=== PATIENT | female | born 1970 | race Caucasian/White ===

== ENCOUNTER → 2023-02-08 | Outpatient (CLI) | payer BC, OTHER | LOC: M RAD 17:34 | PROVIDERS: ATTEND Student in an Organized Health Care Education/Training Program | DX: M17.11 Unilateral primary osteoarthritis, right knee (principal); M19.071 Primary osteoarthritis, right ankle and foot; M79.604 Pain in right leg ==

== ENCOUNTER → 2023-02-08 | Outpatient (REF) | payer OTHER | LOC: M WUC 19:04 | PROVIDERS: ATTEND Student in an Organized Health Care Education/Training Program | DX: R30.0 Dysuria (principal) ==

== ENCOUNTER 2023-08-16 11:20 | Outpatient (RCR) | payer BC, OTHER | END 2023-08-26 | LOC: M OT 11:20 | PROVIDERS: ATTEND Internal Medicine | DX: I67.9 Cerebrovascular disease, unspecified (principal); G81.91 Hemiplegia, unspecified affecting right dominant side; I60.7 Nontraumatic subarachnoid hemorrhage from unspecified intracranial artery; R26.89 Other abnormalities of gait and mobility; R53.81 Other malaise ==

== ENCOUNTER 2023-09-24 14:00 | Outpatient (RCR) | payer BC, OTHER | END 2023-09-26 | LOC: M OT 14:00 | PROVIDERS: ATTEND Internal Medicine | DX: I69.351 Hemiplegia and hemiparesis following cerebral infarction affecting right dominant side (principal); I69.398 Other sequelae of cerebral infarction; R26.81 Unsteadiness on feet; R53.81 Other malaise ==

== ENCOUNTER 2023-10-04 14:03 | Outpatient (RCR) | payer OTHER, BC | END 2023-10-27 | LOC: M OT 14:03 | PROVIDERS: ATTEND Internal Medicine | DX: I69.351 Hemiplegia and hemiparesis following cerebral infarction affecting right dominant side (principal); I69.398 Other sequelae of cerebral infarction; R26.89 Other abnormalities of gait and mobility; R53.81 Other malaise ==

== ENCOUNTER → 2024-02-02 | Outpatient (REF) | payer OTHER, BC ==
[2024-02-02 17:53] LABS: APPEARANCE, URINE HAZY (CLEAR); BACTERIA, URINE AUTO 1+ (NEGATIVE); BILIRUBIN, URINE AUTO NEGATIVE (NEGATIVE); BLOOD, URINE BLOOD NEGATIVE (NEGATIVE); COLOR, URINE AMBER (YELLOW); GLUCOSE, URINE (UA) AUTO NEGATIVE (NEGATIVE); KETONE, URINE AUTO NEGATIVE (NEGATIVE); LEUKOCYTE ESTERASE, URINE AUTO 2+ (NEGATIVE); MUCUS, URINE SMALL (NEGATIVE); NITRITE, URINE AUTO POSITIVE (NEGATIVE); PROTEIN, URINE AUTO 1+ mg/dL (NEGATIVE); RBC, URINE AUTO 4 /HPF (0-3); SPECIFIC GRAVITY URINE AUTO 1.013 (1.002-1.035); SQUAMOUS EPITHELIAL CELL UR AU 6 /HPF (0-6); WBC, URINE AUTO 59 /HPF (0-3)
== END ==
LOC: M LAB REF 15:46
PROVIDERS: ATTEND Internal Medicine
DX: R30.0 Dysuria (principal); R39.9 Unspecified symptoms and signs involving the genitourinary system; R10.9 Unspecified abdominal pain

== ENCOUNTER → 2024-02-24 | Outpatient (CLI) | payer BC ==
[2024-02-24 13:48] LABS: THYROID STIMULATING HORMONE 1.198 uIU/ML (0.55-4.78); VITAMIN B12 LEVEL 957 PG/ML (211-911)
[2024-02-24 13:49] LABS: FOLATE > 24.00 NG/ML (>5.4)
== END ==
LOC: M LAB 12:50
PROVIDERS: ATTEND Psychiatry & Neurology Neurology
DX: E78.2 Mixed hyperlipidemia (principal)

== ENCOUNTER 2024-02-29 13:50 | Inpatient (IN) | payer BC ==
[2024-02-29] VITALS (7 sets, daily range): BP systolic 114–137; BP diastolic 63–85; TEMP 97.5–99.4; O2SAT 94–95
[~2024-02-29] VITALS: Ht 162.6 cm; Wt 76.0 kg
[2024-02-29] MEDS ORDERED: ATIV1TAB10 PO ×2 (14:04→21:35)
[2024-02-29] MEDS ORDERED: FOLI1TAB11 PO (14:04)
[2024-02-29] MEDS ORDERED: GABA-284 PO (14:04)
[2024-02-29] MEDS ORDERED: BACL10TA2 PO (14:04)
[2024-02-29] MEDS ORDERED: OSTE1TAB2 PO (14:04)
[2024-02-29] MEDS ORDERED: FLOM0.4C39 PO (14:04)
[2024-02-29] MEDS ORDERED: ECOT81TA5 PO (14:04)
[2024-02-29] MEDS ORDERED: OXYB10TA23 PO (14:04)
[2024-02-29] MEDS ORDERED: CVSTAB PO (14:04)
[2024-02-29] MEDS ORDERED: DOCU100C16 PO (14:04)
[2024-02-29] MEDS ORDERED: ACET650T15 PO (14:04)
[2024-02-29] MEDS ORDERED: SERT-141 PO (14:04)
[2024-02-29] MEDS ORDERED: OMEP-312 PO (14:04)
[2024-02-29] MEDS ORDERED: TRAZ-186 PO (14:04)
[2024-02-29] MEDS ORDERED: AMAN100T PO (14:04)
[2024-02-29] MEDS ORDERED: DOXA2TAB61 PO (14:04)
[2024-02-29] MEDS ORDERED: PROP10TA56 PO ×2 (14:04→21:35)
[2024-02-29 16:48] LABS: BASO % 0.2 % (0.0-1.0); EOS # 0.1 10^3/uL (0.0-0.5); EOS % 1.2 % (0.0-3.0); HEMATOCRIT 26.5 % (36.0-47.0); LYMPH # 2.1 10^3/uL (1.5-5.0); LYMPH % 23.8 % (24.0-44.0); MEAN CORPUSCULAR HEMOGLOBIN 25.4 pg (27.0-33.0); MEAN CORPUSCULAR HGB CONC 30.2 g/dl (32.0-36.5); MEAN CORPUSCULAR VOLUME 84.1 fl (80.0-96.0); MONO # 0.7 10^3/uL (0.0-0.8); MONO % 7.8 % (2.0-8.0); NEUTROPHILS # 5.9 10^3/uL (1.5-8.5); NEUTROPHILS % 66.5 % (36.0-66.0); PLATELET COUNT, AUTOMATED 632 10^3/uL (150-450); RED BLOOD COUNT 3.15 10^6/uL (4.00-5.40); WHITE BLOOD COUNT 8.9 10^3/uL (4.0-10.0)
[2024-02-29 17:10] LABS: BLOOD UREA NITROGEN 10 MG/DL (9-23); CARBON DIOXIDE LEVEL 27 MMOL/L (20-31); CHLORIDE LEVEL 104 MMOL/L (98-107); CREATININE FOR GFR 0.59 MG/DL (0.55-1.30); GLOMERULAR FILTRATION RATE > 60.0 (>51); GLUCOSE, FASTING 101 MG/DL (60-100); IRON (FE) 7 UG/DL (50-170); POTASSIUM SERUM 5.7 MMOL/L (3.5-5.1); SODIUM LEVEL 138 MMOL/L (136-145); TOTAL IRON BINDING CAPACITY 233 UG/DL (250-425)
[2024-02-29 17:11] LABS: FERRITIN 221.9 NG/ML (7.3-270.7)
[2024-02-29 17:12] LABS: VITAMIN B12 LEVEL 1422 PG/ML (211-911)
[2024-02-29 17:18] LABS: FOLATE > 24.00 NG/ML (>5.4)
[2024-02-29] MEDS ORDERED: MAALOX 30 ML SUSP *UDC PO PRN (19:10)
[2024-02-29 19:37] LABS: ALBUMIN 2.3 G/DL (3.2-5.2); ALKALINE PHOSPHATASE 239 U/L (46-116); ALT/SGPT 34 U/L (7.0-40); AST/SGOT 38 U/L (<34); BILIRUBIN,DIRECT 0.1 MG/DL (<0.4); BILIRUBIN,TOTAL 0.2 MG/DL (0.3-1.2); TOTAL PROTEIN 7.2 G/DL (5.7-8.2)
[2024-02-29] MEDS ORDERED: ISOVUE-370 76% 100ML VIAL As Ordered ONE (20:17)
[2024-02-29 20:53] LABS: PROCALCITONIN 0.12 ng/ml
[2024-02-29] MEDS ORDERED: FERROUS SULFATE 325MG TAB PO SCH (21:05)
[2024-02-29] MEDS ORDERED: GABA-1171 PO (21:35)
[2024-02-29] MEDS ORDERED: VITAD400CA PO (21:35)
[2024-02-29] MEDS ORDERED: TRAZ-252 PO (21:35)
[2024-02-29] MEDS ORDERED: DOXA1TAB41 PO (21:35)
[2024-02-29] MEDS ORDERED: OMEP-173 PO (21:35)
[2024-02-29] MEDS ORDERED: BACL1TAB9 PO (21:35)
[2024-02-29] MEDS ORDERED: ACET-897 PO (21:35)
[2024-02-29] MEDS ORDERED: DOCU100C17 PO (21:35)
[2024-02-29] MEDS ORDERED: NITR100C2 PO (21:35)
[2024-02-29] MEDS ORDERED: ASPI81TA26 PO (21:36)
[2024-02-29] MEDS ORDERED: HOME MED LIST COMPLETE! XX SCH (21:40)
[2024-02-29] MEDS: NS 1,000 ML IV SCH (21:52)
[2024-02-29 22:58] LABS: HEMATOCRIT 28.7 % (36.0-47.0); HEMOGLOBIN 9.1 g/dl (12.0-15.5)
[2024-02-29] MEDS: DOCUSATE SODIUM 100MG CAPSULE PO SCH (23:01)
[2024-02-29] MEDS: FERROUS SULFATE 325MG TAB PO SCH (23:01)
[2024-02-29] MEDS: PATIROMER SORBITEX CALCIUM 8.4 GM POWDER PACKET (VELTASSA) PO ONE (23:04)
[2024-02-29 23:05] LABS: ERYTHROCYTE SEDIMENTATION RATE > 130 mm/hr (0-30)
[2024-03-01] VITALS (21 sets, daily range): BP systolic 102–136; BP diastolic 58–83; TEMP 96.7–98.6; O2SAT 87–100
[2024-03-01] MEDS ORDERED: VANCOMYCIN HCL 1,500 MG in IV FLUID PLACE HOLDER 1 EA IV ONE (00:45)
[2024-03-01] MEDS ORDERED: FLUID PLACE HOLDER IV SCH (00:45)
[2024-03-01] MEDS ORDERED: VANCOMYCIN HCL IV SCH (00:45)
[2024-03-01] MEDS: VANCOMYCIN HCL 750 MG, VIAL MATE ADAPTER 1 EACH in D5W 250 ML IV ONE ×2 (01:14→02:08)
[2024-03-01] MEDS: CEFEPIME HCL 2 GM in D5W MINI-BAG PLUS 50 ML IV SCH (04:03)
[2024-03-01 06:09] LABS: HEMATOCRIT 27.9 % (36.0-47.0); HEMOGLOBIN 8.8 g/dl (12.0-15.5); MEAN CORPUSCULAR HEMOGLOBIN 25.7 pg (27.0-33.0); MEAN CORPUSCULAR HGB CONC 31.5 g/dl (32.0-36.5); MEAN CORPUSCULAR VOLUME 81.3 fl (80.0-96.0); PLATELET COUNT, AUTOMATED 585 10^3/uL (150-450); RED BLOOD COUNT 3.43 10^6/uL (4.00-5.40); WHITE BLOOD COUNT 8.7 10^3/uL (4.0-10.0)
[2024-03-01 06:49] LABS: ALBUMIN 2.1 G/DL (3.2-5.2); ALKALINE PHOSPHATASE 212 U/L (46-116); ALT/SGPT 27 U/L (7.0-40); AST/SGOT 17 U/L (<34); BILIRUBIN,TOTAL 0.6 MG/DL (0.3-1.2); BLOOD UREA NITROGEN 7 MG/DL (9-23); CALCIUM LEVEL 9.1 MG/DL (8.5-10.1); CARBON DIOXIDE LEVEL 26 MMOL/L (20-31); CHLORIDE LEVEL 105 MMOL/L (98-107); CREATININE FOR GFR 0.58 MG/DL (0.55-1.30); GLOMERULAR FILTRATION RATE > 60.0 (>51); GLUCOSE, FASTING 127 MG/DL (60-100); MAGNESIUM LEVEL 1.9 MG/DL (1.8-2.4); SODIUM LEVEL 138 MMOL/L (136-145); TOTAL PROTEIN 6.6 G/DL (5.7-8.2)
[2024-03-01 08:30] LABS: LDH LACTATE DEHYDROGENASE 175 U/L (120-246)
[2024-03-01] MEDS: DOCUSATE SODIUM 100MG CAPSULE PO SCH (09:00)
[2024-03-01] MEDS: VITAMIN D 1,000 INTERNATIONAL UNITS TABLET PO SCH (09:29)
[2024-03-01] MEDS: OMEPRAZOLE 20MG CAP PO SCH (09:29)
[2024-03-01] MEDS: TAMSULOSIN 0.4 MG CAP PO SCH (09:29)
[2024-03-01] MEDS: BACLOFEN 10 MG TAB PO SCH (09:29)
[2024-03-01] MEDS: GABAPENTIN 100 MG CAP PO SCH (09:29)
[2024-03-01] MEDS: FOLIC ACID 1MG TAB PO SCH (09:29)
[2024-03-01] MEDS: SERTRALINE HCL 50 MG TAB PO SCH (09:29)
[2024-03-01] MEDS: ASPIRIN 81MG ENTERIC TABLET PO SCH (09:29)
[2024-03-01] MEDS: VANCOMYCIN HCL 750 MG, VIAL MATE ADAPTER 1 EACH in D5W 250 ML IV SCH (10:27)
[2024-03-01] MEDS: PROPRANOLOL 10 MG TAB PO SCH (10:32)
[2024-03-01 11:58] LABS: HEMATOCRIT 28.7 % (36.0-47.0)
[2024-03-01 12:03] LABS: PH BODY FLUID 7.598 UNITS (NOT ESTABLISHED); SOURCE, BODY FLUID pH PLEURAL
[2024-03-01 12:18] LABS: APPEARANCE, BODY FLUID HAZY (CLEAR); PLEURAL FL COLOR PALE YELLOW (COLORLESS); SOURCE, BODY FLUID PLEURAL
[2024-03-01] MEDS: DOXAZOSIN MESYLATE 1 MG TAB PO SCH (12:23)
[2024-03-01] MEDS: AMANTADINE 100MG TABLET PO SCH (12:23)
[2024-03-01 12:26] LABS: SOURCE, BODY FLUID ALBUMIN PLEURAL
[2024-03-01 12:31] LABS: SOURCE, BODY FLUID GLUCOSE PLEURAL
[2024-03-01 12:32] LABS: LDH, BODY FLUID 177 U/L (NOT ESTABLISHED); SOURCE, BODY FLUID LDH PLEURAL
[2024-03-01] MEDS ORDERED: PILL CUTTER 1 EACH XX ONE (15:25)
[2024-03-01] MEDS: ONDANSETRON 4MG 2ML VIAL IV PRN (16:29)
[2024-03-01 18:30] LABS: HEMATOCRIT 27.6 % (36.0-47.0); HEMOGLOBIN 8.7 g/dl (12.0-15.5)
[2024-03-01] MEDS: LORazepam 0.5 MG TAB PO SCH (21:12)
[2024-03-01] MEDS: traZODone 50 MG TAB PO SCH (21:13)
[2024-03-02] VITALS (13 sets, daily range): BP systolic 105–129; BP diastolic 66–85; TEMP 97.3–98.7; O2SAT 93–96
[2024-03-02 00:18] LABS: HEMATOCRIT 28.2 % (36.0-47.0); HEMOGLOBIN 8.9 g/dl (12.0-15.5)
[2024-03-02 05:41] LABS: BASO % 0.4 % (0.0-1.0); EOS # 0.1 10^3/uL (0.0-0.5); EOS % 1.3 % (0.0-3.0); HEMATOCRIT 27.5 % (36.0-47.0); HEMOGLOBIN 8.6 g/dl (12.0-15.5); LYMPH # 1.7 10^3/uL (1.5-5.0); MEAN CORPUSCULAR HEMOGLOBIN 25.5 pg (27.0-33.0); MEAN CORPUSCULAR HGB CONC 31.3 g/dl (32.0-36.5); MEAN CORPUSCULAR VOLUME 81.6 fl (80.0-96.0); MONO # 0.7 10^3/uL (0.0-0.8); MONO % 8.2 % (2.0-8.0); NEUTROPHILS # 6.3 10^3/uL (1.5-8.5); NEUTROPHILS % 70.4 % (36.0-66.0); PLATELET COUNT, AUTOMATED 574 10^3/uL (150-450); RED BLOOD COUNT 3.37 10^6/uL (4.00-5.40)
[2024-03-02 05:47] LABS: ERYTHROCYTE SEDIMENTATION RATE > 130 mm/hr (0-30)
[2024-03-02 05:59] LABS: ALBUMIN 1.9 G/DL (3.2-5.2); ALKALINE PHOSPHATASE 194 U/L (46-116); ALT/SGPT 24 U/L (7.0-40); AST/SGOT 12 U/L (<34); BILIRUBIN,TOTAL 0.5 MG/DL (0.3-1.2); BLOOD UREA NITROGEN 6 MG/DL (9-23); CALCIUM LEVEL 8.6 MG/DL (8.5-10.1); CARBON DIOXIDE LEVEL 24 MMOL/L (20-31); CHLORIDE LEVEL 109 MMOL/L (98-107); CREATININE FOR GFR 0.62 MG/DL (0.55-1.30); GLOMERULAR FILTRATION RATE > 60.0 (>51); GLUCOSE, FASTING 94 MG/DL (60-100); MAGNESIUM LEVEL 1.8 MG/DL (1.8-2.4); POTASSIUM SERUM 4.2 MMOL/L (3.5-5.1); SODIUM LEVEL 143 MMOL/L (136-145); TOTAL PROTEIN 6.4 G/DL (5.7-8.2)
[2024-03-02] MEDS: VANCOMYCIN HCL 1,000 MG, VIAL MATE ADAPTER 1 EACH in D5W 250 ML IV SCH (10:07)
[2024-03-03] VITALS (10 sets, daily range): BP systolic 109–130; BP diastolic 63–80; TEMP 97.4–98.2; O2SAT 93–96
[2024-03-03 06:54] LABS: BASO % 0.3 % (0.0-1.0); EOS # 0.2 10^3/uL (0.0-0.5); EOS % 1.9 % (0.0-3.0); HEMOGLOBIN 8.6 g/dl (12.0-15.5); LYMPH # 1.6 10^3/uL (1.5-5.0); LYMPH % 18.4 % (24.0-44.0); MEAN CORPUSCULAR HEMOGLOBIN 25.1 pg (27.0-33.0); MEAN CORPUSCULAR HGB CONC 30.7 g/dl (32.0-36.5); MEAN CORPUSCULAR VOLUME 81.9 fl (80.0-96.0); MONO # 0.8 10^3/uL (0.0-0.8); MONO % 8.7 % (2.0-8.0); NEUTROPHILS % 69.7 % (36.0-66.0); PLATELET COUNT, AUTOMATED 545 10^3/uL (150-450); RED BLOOD COUNT 3.42 10^6/uL (4.00-5.40); WHITE BLOOD COUNT 8.6 10^3/uL (4.0-10.0)
[2024-03-03 07:19] LABS: ALBUMIN 1.8 G/DL (3.2-5.2); ALKALINE PHOSPHATASE 176 U/L (46-116); ALT/SGPT 22 U/L (7.0-40); AST/SGOT 9 U/L (<34); BILIRUBIN,TOTAL 0.5 MG/DL (0.3-1.2); BLOOD UREA NITROGEN 6 MG/DL (9-23); CALCIUM LEVEL 8.5 MG/DL (8.5-10.1); CARBON DIOXIDE LEVEL 24 MMOL/L (20-31); CHLORIDE LEVEL 112 MMOL/L (98-107); GLOMERULAR FILTRATION RATE > 60.0 (>51); GLUCOSE, FASTING 103 MG/DL (60-100); MAGNESIUM LEVEL 1.8 MG/DL (1.8-2.4); POTASSIUM SERUM 3.9 MMOL/L (3.5-5.1); SODIUM LEVEL 143 MMOL/L (136-145); TOTAL PROTEIN 6.1 G/DL (5.7-8.2)
[2024-03-03] MEDS: VANCOMYCIN HCL 750 MG, VIAL MATE ADAPTER 1 EACH in D5W 250 ML IV SCH (10:37)
[2024-03-03] MEDS: MOM 30ML SUSPENSION UDC PO PRN (10:38)
[2024-03-03] MEDS: ACETAMINOPHEN TAB 650MG DOSE (2X325MG) PO PRN (11:45)
[2024-03-04] VITALS (7 sets, daily range): BP systolic 116–150; BP diastolic 67–87; TEMP 96.8–98; O2SAT 95–97
[2024-03-04 07:01] LABS: BASO % 0.3 % (0.0-1.0); EOS # 0.2 10^3/uL (0.0-0.5); EOS % 1.8 % (0.0-3.0); HEMATOCRIT 29.6 % (36.0-47.0); HEMOGLOBIN 9.3 g/dl (12.0-15.5); LYMPH # 1.5 10^3/uL (1.5-5.0); LYMPH % 15.6 % (24.0-44.0); MEAN CORPUSCULAR HEMOGLOBIN 25.9 pg (27.0-33.0); MEAN CORPUSCULAR HGB CONC 31.4 g/dl (32.0-36.5); MEAN CORPUSCULAR VOLUME 82.5 fl (80.0-96.0); MONO # 0.7 10^3/uL (0.0-0.8); MONO % 6.6 % (2.0-8.0); NEUTROPHILS # 7.4 10^3/uL (1.5-8.5); NEUTROPHILS % 74.9 % (36.0-66.0); PLATELET COUNT, AUTOMATED 637 10^3/uL (150-450); RED BLOOD COUNT 3.59 10^6/uL (4.00-5.40); WHITE BLOOD COUNT 9.9 10^3/uL (4.0-10.0)
[2024-03-04 07:29] LABS: BLOOD UREA NITROGEN 6 MG/DL (9-23); CALCIUM LEVEL 8.7 MG/DL (8.5-10.1); CARBON DIOXIDE LEVEL 26 MMOL/L (20-31); CHLORIDE LEVEL 111 MMOL/L (98-107); CREATININE FOR GFR 0.47 MG/DL (0.55-1.30); GLOMERULAR FILTRATION RATE > 60.0 (>51); GLUCOSE, FASTING 103 MG/DL (60-100); MAGNESIUM LEVEL 2.1 MG/DL (1.8-2.4); POTASSIUM SERUM 4.5 MMOL/L (3.5-5.1); SODIUM LEVEL 144 MMOL/L (136-145)
[2024-03-04] MEDS: MIRALAX *UNIT DOSE* 17GM PACKET PO PRN (13:41)
[2024-03-04] MEDS: BISACODYL 10MG SUPP PR PRN (13:41)
[2024-03-04] MEDS: SENOKOT S TAB PO SCH (21:36)
[2024-03-05 04:00] VITALS: BP 142/87; TEMP 97.7; O2SAT 95
[2024-03-05 12:00] VITALS: BP 131/74; TEMP 97.5; O2SAT 99
[2024-03-05] MEDS: NICOTINE 21MG/24HR 1 EA TRANSDERMAL TD SCH (15:25)
[2024-03-05 20:00] VITALS: BP 132/78; TEMP 98.4; O2SAT 95
[2024-03-06 04:00] VITALS: BP 156/96; TEMP 97.9; O2SAT 97
[2024-03-06 06:50] LABS: BLOOD UREA NITROGEN < 5 MG/DL (9-23); CALCIUM LEVEL 8.5 MG/DL (8.5-10.1); CARBON DIOXIDE LEVEL 24 MMOL/L (20-31); CHLORIDE LEVEL 111 MMOL/L (98-107); GLOMERULAR FILTRATION RATE > 60.0 (>51); GLUCOSE, FASTING 100 MG/DL (60-100); MAGNESIUM LEVEL 2.1 MG/DL (1.8-2.4); SODIUM LEVEL 142 MMOL/L (136-145)
[2024-03-06 14:19] VITALS: BP 119/81; TEMP 98.1; O2SAT 95
[2024-03-06 20:07] VITALS: BP 140/89; TEMP 98.1; O2SAT 90
[2024-03-06 23:32] VITALS: O2SAT 95
[2024-03-07 04:35] VITALS: BP 133/86; TEMP 98.1; O2SAT 97
[2024-03-07 12:31] LABS: THYROID STIMULATING HORMONE 1.763 uIU/ML (0.55-4.78); THYROXINE (T4) 10.7 UG/DL (4.5-10.9)
[2024-03-07 12:51] VITALS: BP 138/90; TEMP 98.1; O2SAT 95
[2024-03-07 13:34] LABS: FREE THYROXINE INDEX 4.3 % (1.3-4.8); T UPTAKE 40.3 % (22.5-37.0)
[2024-03-07 20:21] VITALS: BP 138/91; TEMP 98.1; O2SAT 95
[2024-03-08 04:37] VITALS: BP 136/89; TEMP 97.9; O2SAT 95
[2024-03-08 09:31] LABS: BASO % 0.4 % (0.0-1.0); EOS # 0.2 10^3/uL (0.0-0.5); EOS % 2.5 % (0.0-3.0); HEMATOCRIT 32.9 % (36.0-47.0); LYMPH # 1.9 10^3/uL (1.5-5.0); LYMPH % 22.3 % (24.0-44.0); MEAN CORPUSCULAR HEMOGLOBIN 25.1 pg (27.0-33.0); MEAN CORPUSCULAR HGB CONC 30.4 g/dl (32.0-36.5); MEAN CORPUSCULAR VOLUME 82.5 fl (80.0-96.0); MONO # 0.5 10^3/uL (0.0-0.8); MONO % 6.4 % (2.0-8.0); NEUTROPHILS # 5.7 10^3/uL (1.5-8.5); NEUTROPHILS % 67.5 % (36.0-66.0); PLATELET COUNT, AUTOMATED 661 10^3/uL (150-450); RED BLOOD COUNT 3.99 10^6/uL (4.00-5.40); WHITE BLOOD COUNT 8.5 10^3/uL (4.0-10.0)
[2024-03-08 09:35] LABS: BLOOD UREA NITROGEN 7 MG/DL (9-23); CARBON DIOXIDE LEVEL 26 MMOL/L (20-31); CHLORIDE LEVEL 107 MMOL/L (98-107); GLOMERULAR FILTRATION RATE > 60.0 (>51); GLUCOSE, FASTING 122 MG/DL (60-100); POTASSIUM SERUM 4.1 MMOL/L (3.5-5.1); SODIUM LEVEL 141 MMOL/L (136-145)
[2024-03-08 09:50] LABS: ERYTHROCYTE SEDIMENTATION RATE > 130 mm/hr (0-30)
[2024-03-08 12:55] VITALS: BP 132/86; TEMP 97.9; O2SAT 96
[2024-03-08 21:57] VITALS: BP 133/88; TEMP 98.1; O2SAT 97
[2024-03-09 04:48] VITALS: BP 127/88; TEMP 97.3; O2SAT 97
[2024-03-09] MEDS ORDERED: VANCOMYCIN HCL 1,000 MG, VIAL MATE ADAPTER 1 EACH in D5W 250 ML IV SCH (08:55)
[2024-03-09] MEDS ORDERED: methylPREDNISolone 125MG 2ML VIAL IV SCH (09:00)
[2024-03-09] MEDS: VANCOMYCIN HCL 750 MG, VIAL MATE ADAPTER 1 EACH in D5W 250 ML IV ONE ×2 (09:49→09:55)
[2024-03-09 09:57] LABS: BLOOD UREA NITROGEN 8 MG/DL (9-23); CALCIUM LEVEL 8.6 MG/DL (8.5-10.1); CARBON DIOXIDE LEVEL 27 MMOL/L (20-31); CHLORIDE LEVEL 104 MMOL/L (98-107); CREATININE FOR GFR 0.54 MG/DL (0.55-1.30); GLOMERULAR FILTRATION RATE > 60.0 (>51); GLUCOSE, FASTING 134 MG/DL (60-100); POTASSIUM SERUM 4.2 MMOL/L (3.5-5.1); SODIUM LEVEL 141 MMOL/L (136-145)
[2024-03-09] MEDS: methylPREDNISolone 250 MG in D5W 100 ML IV SCH (11:02)
[2024-03-09 11:51] VITALS: BP 136/95; TEMP 98.6; O2SAT 95
[2024-03-09 20:26] VITALS: BP 129/84; TEMP 98.1; O2SAT 93
[2024-03-09] MEDS: VANCOMYCIN HCL 750 MG, VIAL MATE ADAPTER 1 EACH in D5W 250 ML IV SCH (20:26)
[2024-03-10 04:38] VITALS: BP 142/82; TEMP 97.6; O2SAT 94
[2024-03-10 12:10] VITALS: BP 131/83; TEMP 97.8; O2SAT 95
[2024-03-10] MEDS ORDERED: CEFE2INJ2 IV (17:12)
[2024-03-10] MEDS ORDERED: METH125VL IV (17:12)
[2024-03-10] MEDS ORDERED: VANC1INJ38 IV (17:14)
[2024-03-10] MEDS ORDERED: ASPI81TAEC PO (17:17)
[2024-03-10] MEDS ORDERED: NICO21PAT TD (17:17)
[2024-03-10] MEDS ORDERED: AMAN100T4 PO (17:17)
[2024-03-10] MEDS ORDERED: FERR1TAB8 PO (17:17)
[2024-03-10 20:35] VITALS: BP 129/87; TEMP 98.2; O2SAT 95
[2024-03-11 04:50] VITALS: BP 136/91; TEMP 97.9; O2SAT 94
[2024-03-11 08:35] LABS: BLOOD UREA NITROGEN 12 MG/DL (9-23); CALCIUM LEVEL 9.2 MG/DL (8.5-10.1); CARBON DIOXIDE LEVEL 25 MMOL/L (20-31); CHLORIDE LEVEL 108 MMOL/L (98-107); CREATININE FOR GFR 0.52 MG/DL (0.55-1.30); GLOMERULAR FILTRATION RATE > 60.0 (>51); GLUCOSE, FASTING 94 MG/DL (60-100); POTASSIUM SERUM 3.8 MMOL/L (3.5-5.1); SODIUM LEVEL 140 MMOL/L (136-145); VANCOMYCIN LEVEL TROUGH 13.8 UG/ML (10.0-20.0)
[2024-03-11 12:12] VITALS: BP 128/86; TEMP 98.1; O2SAT 93
[2024-03-11 20:04] VITALS: BP 144/94; TEMP 98.8; O2SAT 100
[2024-03-12 03:21] VITALS: BP 148/88; TEMP 97.9; O2SAT 95
[2024-03-12 08:06] LABS: BASO % 0.2 % (0.0-1.0); EOS % 0.2 % (0.0-3.0); HEMATOCRIT 31.9 % (36.0-47.0); HEMOGLOBIN 9.9 g/dl (12.0-15.5); LYMPH # 2.7 10^3/uL (1.5-5.0); LYMPH % 21.5 % (24.0-44.0); MEAN CORPUSCULAR HEMOGLOBIN 25.6 pg (27.0-33.0); MEAN CORPUSCULAR VOLUME 82.6 fl (80.0-96.0); MONO # 0.9 10^3/uL (0.0-0.8); MONO % 7.3 % (2.0-8.0); NEUTROPHILS # 8.8 10^3/uL (1.5-8.5); NEUTROPHILS % 70.3 % (36.0-66.0); PLATELET COUNT, AUTOMATED 544 10^3/uL (150-450); RED BLOOD COUNT 3.86 10^6/uL (4.00-5.40); WHITE BLOOD COUNT 12.5 10^3/uL (4.0-10.0)
[2024-03-12 08:13] LABS: ERYTHROCYTE SEDIMENTATION RATE > 130 mm/hr (0-30)
[2024-03-12 08:38] LABS: C REACTIVE PROTEIN QUANTITATIV 6.8 MG/DL (<1.0)
[2024-03-12 08:51] LABS: PROCALCITONIN 0.05 ng/ml
[2024-03-12] MEDS: predniSONE 20 MG TAB PO SCH (09:49)
[2024-03-12 12:15] VITALS: BP 139/95; TEMP 98.1; O2SAT 94
[2024-03-12 13:44] LABS: VANCOMYCIN RANDOM 12.8 UG/ML
[2024-03-12] MEDS ORDERED: LEVALBUTEROL 1.25MG 0.5ML CONCENTRATE NEB INH PRN (17:40)
[2024-03-12] MEDS: LEVALBUTEROL 1.25MG 0.5ML CONCENTRATE NEB NEB ONE (18:13)
[2024-03-12 18:29] LABS: CK-MB VALUE MASS < 1.0 NG/ML (<3.6); CPK CREATINE PHOSPHOKINASE 65 U/L (34-145); MB/CK RELATIVE INDEX 1.53 (< OR =4)
[2024-03-12 18:36] LABS: ABG BASE EXCESS -0.8 (-2.0-2.0); ABG HCO3 22.3 MMOL/L (22.0-26.0); ABG O2 SATURATION 93.4 % (95.0-99.0); ABG PARTIAL PRESSURE O2 66.3 mmHg (75.0-100.0); ABG STANDARD HCO3 23.7 MMOL/L. (22.0-26.0); ABG TOTAL CO2 23.3 MMOL/L (22.0-29.0); ABG pH (ARTERIAL) 7.461 UNITS (7.350-7.450)
[2024-03-12] MEDS: FUROSEMIDE 40MG/4ML VIAL IV ONE (18:36)
[2024-03-12 19:50] VITALS: BP 138/94; TEMP 98.2; O2SAT 95
[2024-03-12] MEDS: LEVALBUTEROL 1.25MG 0.5ML CONCENTRATE NEB INH SCH (19:57)
[2024-03-12] MEDS: VANCOMYCIN HCL 1,000 MG, VIAL MATE ADAPTER 1 EACH in D5W 250 ML IV SCH (21:36)
[2024-03-13 04:14] VITALS: BP 138/93; TEMP 97.5; O2SAT 95
[2024-03-13 08:55] LABS: BLOOD UREA NITROGEN 15 MG/DL (9-23); CALCIUM LEVEL 9.1 MG/DL (8.5-10.1); CARBON DIOXIDE LEVEL 28 MMOL/L (20-31); CHLORIDE LEVEL 107 MMOL/L (98-107); CREATININE FOR GFR 0.56 MG/DL (0.55-1.30); GLOMERULAR FILTRATION RATE > 60.0 (>51); GLUCOSE, FASTING 85 MG/DL (60-100); POTASSIUM SERUM 3.9 MMOL/L (3.5-5.1); SODIUM LEVEL 141 MMOL/L (136-145)
[2024-03-13] MEDS: VANCOMYCIN HCL 750 MG, VIAL MATE ADAPTER 1 EACH in D5W 250 ML IV SCH (09:20)
[2024-03-13 12:00] VITALS: BP 133/89; TEMP 98.1; O2SAT 98
[2024-03-13 15:18] VITALS: BP 134/90
== END 2024-03-13 16:20 | disposition short-term general hospital (02) | DRG 663 ==
LOC: M ED 13:50 → M ED INP 19:10 → M PCU 22:00 → M MS5PR 03-04 22:20
PROVIDERS: ADMIT Internal Medicine; ATTEND General Practice
PROC: 30233N1 Transfusion of Nonautologous Red Blood Cells into Peripheral Vein, Percutaneous Approach (ICD-10-PCS; principal; 2024-02-29)
PROC: 0W993ZZ Drainage of Right Pleural Cavity, Percutaneous Approach (ICD-10-PCS; 2024-03-01)
DX: D50.9 Iron deficiency anemia, unspecified (principal); G04.90 Encephalitis and encephalomyelitis, unspecified; J90 Pleural effusion, not elsewhere classified; G91.9 Hydrocephalus, unspecified; G81.13 Spastic hemiplegia affecting right nondominant side; E87.5 Hyperkalemia; R00.0 Tachycardia, unspecified; Z79.82 Long term (current) use of aspirin; Z79.899 Other long term (current) drug therapy; Z98.2 Presence of cerebrospinal fluid drainage device; Z96.641 Presence of right artificial hip joint; I10 Essential (primary) hypertension; E78.00 Pure hypercholesterolemia, unspecified; K21.9 Gastro-esophageal reflux disease without esophagitis; F41.9 Anxiety disorder, unspecified; F32.A Depression, unspecified; F17.200 Nicotine dependence, unspecified, uncomplicated; I69.16 Other paralytic syndrome following nontraumatic intracerebral hemorrhage; R32 Unspecified urinary incontinence; K59.00 Constipation, unspecified; I69.120 Aphasia following nontraumatic intracerebral hemorrhage

== ENCOUNTER → 2024-05-18 | Outpatient (CLI) | payer BC ==
[~2024-05-18] MED LIST: ACET-897 PO; ACET650T15 PO; AMAN100T PO; AMAN100T4 PO; ASPI81TA26 PO; ASPI81TAEC PO; ATIV1TAB10 PO; BACL10TA2 PO; BACL1TAB9 PO; CEFE2INJ2 IV; CVSTAB PO; DOCU100C16 PO; DOCU100C17 PO; DOXA1TAB41 PO; DOXA2TAB61 PO; ECOT81TA5 PO; FERR1TAB8 PO; FLOM0.4C39 PO; FOLI1TAB11 PO; GABA-1171 PO; GABA-284 PO; METH125VL IV; NICO21PAT TD; NITR100C2 PO; OMEP-173 PO; OMEP-312 PO; OSTE1TAB2 PO; OXYB10TA23 PO; PROP10TA56 PO; SERT-141 PO; TRAZ-186 PO; TRAZ-252 PO; VANC1INJ38 IV; VITAD400CA PO
[2024-05-18 16:49] LABS: APPEARANCE, URINE HAZY (CLEAR); BACTERIA, URINE AUTO NEGATIVE (NEGATIVE); BILIRUBIN, URINE AUTO NEGATIVE (NEGATIVE); BLOOD, URINE BLOOD NEGATIVE (NEGATIVE); COLOR, URINE YELLOW (YELLOW); GLUCOSE, URINE (UA) AUTO NEGATIVE (NEGATIVE); KETONE, URINE AUTO NEGATIVE (NEGATIVE); LEUKOCYTE ESTERASE, URINE AUTO NEGATIVE (NEGATIVE); MUCUS, URINE SMALL (NEGATIVE); NITRITE, URINE AUTO NEGATIVE (NEGATIVE); PROTEIN, URINE AUTO NEGATIVE (NEGATIVE); RBC, URINE AUTO 1 /HPF (0-3); SPECIFIC GRAVITY URINE AUTO 1.019 (1.002-1.035); SQUAMOUS EPITHELIAL CELL UR AU 3 /HPF (0-6); UROBILINOGEN, URINE AUTO 0.2 mg/dL (0.0-2.0); WBC, URINE AUTO 1 /HPF (0-3)
== END ==
LOC: M LAB 16:06
PROVIDERS: ATTEND Internal Medicine
DX: R39.9 Unspecified symptoms and signs involving the genitourinary system (principal)

== ENCOUNTER → 2024-06-26 | Outpatient (RCR) | payer BC | LOC: M PT 06-05 14:19 | PROVIDERS: ATTEND Internal Medicine | DX: I63.9 Cerebral infarction, unspecified (principal); R26.81 Unsteadiness on feet ==

== ENCOUNTER 2024-07-24 14:30 | Outpatient (RCR) | payer BC | END 2024-07-27 | LOC: M PT 14:30 | PROVIDERS: ATTEND Internal Medicine | DX: I69.351 Hemiplegia and hemiparesis following cerebral infarction affecting right dominant side (principal) ==

== ENCOUNTER 2024-08-21 14:29 | Outpatient (RCR) | payer BC | END 2024-08-26 | LOC: M PT 14:29 | PROVIDERS: ATTEND Internal Medicine | DX: I69.351 Hemiplegia and hemiparesis following cerebral infarction affecting right dominant side (principal); I69.398 Other sequelae of cerebral infarction; R26.89 Other abnormalities of gait and mobility ==

== ENCOUNTER 2024-09-04 15:13 | Outpatient (RCR) | payer BC | END 2024-09-26 | LOC: M PT 15:13 | PROVIDERS: ATTEND Internal Medicine | DX: I67.9 Cerebrovascular disease, unspecified (principal); G81.91 Hemiplegia, unspecified affecting right dominant side ==

== ENCOUNTER 2025-01-12 12:54 | Outpatient (RCR) | payer BC ==
[~2025-01-12 12:54] MED LIST changes: +AMAN100T19 PO; -AMAN100T4 PO; -FLOM0.4C39 PO; +TAMS-18 PO
== END 2025-01-24 ==
LOC: M PT 12:54
PROVIDERS: ATTEND Internal Medicine
DX: I67.9 Cerebrovascular disease, unspecified (principal); G81.91 Hemiplegia, unspecified affecting right dominant side

== ENCOUNTER → 2025-04-03 | Outpatient (CLI) | payer BC ==
[2025-04-03 09:34] LABS: BASO # 0.0 10^3/uL (0.0-0.2); BASO % 0.4 % (0.0-1.0); EOS # 0.1 10^3/uL (0.0-0.5); EOS % 1.6 % (0.0-3.0); LYMPH # 1.8 10^3/uL (1.5-5.0); LYMPH % 35.2 % (24.0-44.0); MONO # 0.4 10^3/uL (0.0-0.8); MONO % 7.5 % (2.0-8.0); NEUTROPHILS # 2.8 10^3/uL (1.5-8.5); NEUTROPHILS % 55.1 % (36.0-66.0); PLATELET COUNT, AUTOMATED 236 10^3/uL (150-450)
[2025-04-03 09:35] LABS: APPEARANCE, URINE HAZY (CLEAR); BACTERIA, URINE AUTO NEGATIVE (NEGATIVE); BILIRUBIN, URINE AUTO NEGATIVE (NEGATIVE); BLOOD, URINE BLOOD NEGATIVE (NEGATIVE); GLUCOSE, URINE (UA) AUTO NEGATIVE (NEGATIVE); KETONE, URINE AUTO NEGATIVE (NEGATIVE); LEUKOCYTE ESTERASE, URINE AUTO NEGATIVE (NEGATIVE); MUCUS, URINE SMALL (NEGATIVE); NITRITE, URINE AUTO NEGATIVE (NEGATIVE); PROTEIN, URINE AUTO NEGATIVE (NEGATIVE); RBC, URINE AUTO 0 /HPF (0-3); SPECIFIC GRAVITY URINE AUTO 1.021 (1.002-1.035); SQUAMOUS EPITHELIAL CELL UR AU 2 /HPF (0-6); UROBILINOGEN, URINE AUTO 0.2 mg/dL (0.0-2.0); WBC, URINE AUTO 2 /HPF (0-3)
[2025-04-03 09:58] LABS: ALT/SGPT 24.0 U/L (7.0-40); AST/SGOT 16.0 U/L (<34); CALCIUM LEVEL 9.8 MG/DL (8.5-10.1); CARBON DIOXIDE LEVEL 27.0 MMOL/L (20-31); CHLORIDE LEVEL 109.0 MMOL/L (98-107); CHOLESTEROL LEVEL 197.0 MG/DL (<200); CHOLESTEROL RISK RATIO 3.47 (<5); CREATININE FOR GFR 0.99 MG/DL (0.55-1.30); GLOMERULAR FILTRATION RATE 67.3 (>51); LDL CHOLESTEROL 123.3 MG/DL (<100); NON-HDL-C 140.3 MG/DL; POTASSIUM SERUM 4.4 MMOL/L (3.5-5.1); SODIUM LEVEL 147.0 MMOL/L (136-145); TRIGLYCERIDES LEVEL 85.0 MG/DL (<150)
[2025-04-03 10:00] LABS: FREE T4 1.56 NG/DL (0.89-1.76); TOTAL 25(OH) VITAMIN D 61.4 NG/ML (20.0-100.0)
[2025-04-03 10:11] LABS: ESTIMATED AVERAGE GLUCOSE 94.0 MG/DL (60-110)
== END ==
LOC: M LAB 08:34
PROVIDERS: ATTEND Internal Medicine
DX: E78.2 Mixed hyperlipidemia (principal); E55.9 Vitamin D deficiency, unspecified

== ENCOUNTER → 2025-05-09 | Outpatient (REF) | payer BC ==
[~2025-05-09] MED LIST changes: +ACET-1515 PO; -ACET650T15 PO
[2025-05-09 14:40] LABS: APPEARANCE, URINE HAZY (CLEAR); BACTERIA, URINE AUTO 1+ (NEGATIVE); BILIRUBIN, URINE AUTO NEGATIVE (NEGATIVE); BLOOD, URINE BLOOD 2+ (NEGATIVE); GLUCOSE, URINE (UA) AUTO NEGATIVE (NEGATIVE); KETONE, URINE AUTO NEGATIVE (NEGATIVE); LEUKOCYTE ESTERASE, URINE AUTO 3+ (NEGATIVE); MUCUS, URINE SMALL (NEGATIVE); NITRITE, URINE AUTO NEGATIVE (NEGATIVE); PROTEIN, URINE AUTO NEGATIVE (NEGATIVE); RBC, URINE AUTO 30 /HPF (0-3); SPECIFIC GRAVITY URINE AUTO 1.012 (1.002-1.035); SQUAMOUS EPITHELIAL CELL UR AU 6 /HPF (0-6); UROBILINOGEN, URINE AUTO 2.0 mg/dL (0.0-2.0); WBC, URINE AUTO 37 /HPF (0-3)
== END ==
LOC: M LAB REF 14:08
PROVIDERS: ATTEND Urology
DX: R30.0 Dysuria (principal)

== ENCOUNTER → 2025-07-09 | Outpatient (CLI) | payer BC ==
[~2025-07-09] MED LIST changes: -AMAN100T19 PO; +AMAN100T8 PO
== END ==
LOC: M RAD 09:48
PROVIDERS: ATTEND Internal Medicine
DX: R10.10 Upper abdominal pain, unspecified (principal)

== ENCOUNTER 2025-08-15 13:34 | Day surgery (SDC) | payer BC ==
[~2025-08-15] VITALS: Ht 172.7 cm; Wt 96.8 kg
[~2025-08-15 13:34] MED LIST changes: +ACETAMINOPHEN 1000MG/100ML IV BAG As Ordered ONE; +ASPI-226 PO; +FERR325T3 PO; +KETOROLAC 30 MG/ML 1 ML VIAL As Ordered ONE; +LIDOCAINE 2% 100 MG/5 ML SDV (FOR ANES.) As Ordered ONE; +MIDAZOLAM INJ 2 MG/2 ML VIAL As Ordered ONE; +MULTTAB61 PO; +ONDANSETRON 4MG/2ML VIAL As Ordered ONE; +PREG25CA3 PO; +TAMS1CAP17 PO; +TRAZ1TAB11 PO; +dexAMETHasone 4 MG/ML 1 ML VIAL As Ordered ONE
[2025-08-15] MEDS: LR 1,000 ML IV SCH (15:10)
[2025-08-15] MEDS ORDERED: dexmedeTOMIDine (4 MCG/ML) 200 MCG/50 ML BTL As Ordered ONE (16:10)
[2025-08-15] MEDS ORDERED: SEVOFLURANE INHAL SOLN 250 ML BTL As Ordered ONE (16:14)
[2025-08-15] MEDS ORDERED: HYDROMORPHONE HCL 0.5 MG/0.5 ML SYRINGE IV PRN (16:35)
[2025-08-15] MEDS ORDERED: LR 1,000 ML IV SCH (16:35)
[2025-08-15] MEDS: ONDANSETRON 4MG/2ML VIAL IV PRN (16:50)
[2025-08-15 17:40] VITALS: BP 119/74; TEMP 97.4; O2SAT 98
[2025-08-17 16:20] LABS: HPV APTIMA Not Detected (Not Detected)
== END 2025-08-15 17:43 | disposition home or self-care (01) ==
LOC: M SDC 13:34
PROVIDERS: ATTEND Student in an Organized Health Care Education/Training Program
DX: N95.0 Postmenopausal bleeding (principal); N95.2 Postmenopausal atrophic vaginitis; F17.210 Nicotine dependence, cigarettes, uncomplicated; I69.351 Hemiplegia and hemiparesis following cerebral infarction affecting right dominant side; I69.398 Other sequelae of cerebral infarction; I69.320 Aphasia following cerebral infarction; G62.9 Polyneuropathy, unspecified; R26.89 Other abnormalities of gait and mobility; Z79.899 Other long term (current) drug therapy; Z79.82 Long term (current) use of aspirin; F41.9 Anxiety disorder, unspecified; Z86.79 Personal history of other diseases of the circulatory system
CPT/HCPCS: 58558; 87624; 88305; 93005; G0123; J0131; J1100; J1885; J2250; J2405; J3010